=== PATIENT | male | born 1945 | race Caucasian/White ===

== ENCOUNTER 2019-03-22 05:40 | Inpatient (IN) | payer BC, MEDICARE ==
[2019-03-11 12:26] LABS: BASOPHILS # (AUTO) 0.1 X10'3 (0-0.2); BASOPHILS % (AUTO) 1.4 % (0-1); EOSINOPHILS # (AUTO) 0.2 X10'3 (0-0.9); EOSINOPHILS % (AUTO) 3.2 % (0-6); LYMPHOCYTES # (AUTO) 1.2 X10'3 (1.1-4.8); MEAN CORPUSCULAR HEMOGLOBIN 30.5 PG (27.0-31.0); MEAN CORPUSCULAR VOLUME 89.6 FL (78-98); MEAN PLATELET VOLUME 9.5 FL (7.4-10.4); MONOCYTES # (AUTO) 0.5 X10'3 (0-0.9); MONOCYTES % (AUTO) 8.8 % (2-12); NEUTROPHILS # (AUTO) 3.4 X10'3 (1.8-7.7); NEUTROPHILS % (AUTO) 63.6 % (42-75); PRE OP HEMATOCRIT 43.4 % (42.0-52.0); PRE OP HEMOGLOBIN 14.8 g/dL (14.0-17.9); PRE OP PLATELET COUNT 167 X10'3 (140-440); RED BLOOD COUNT 4.85 X10'6 (4.70-6.10); RED CELL DISTRIBUTION WIDTH 13.3 % (11.5-14.5)
[2019-03-11 12:27] LABS: CLARITY,URINE CLEAR (Clear); COLOR,URINE YELLOW (Yellow); GLUCOSE, URINE NEGATIVE (Neg); KETONES,URINE TRACE mg/dl (Neg); LEUKOCYTE ESTERASE ,URINE NEGATIVE (Neg); NITRITES, URINE NEGATIVE (Neg); OCCULT BLOOD,URINE NEGATIVE (Neg); PH,URINE 5.5 (4.8-8.0); PROTEIN,URINE TRACE mg/dl (Neg); UROBILINOGEN,URINE 0.2 E.U/dL (0.2-1.0)
[2019-03-11 12:33] LABS: UA COLLECTION TYPE CLN CATCH MIDSTREAM
[2019-03-11 12:38] LABS: BACTERIA,URINE FEW /HPF (Neg); RBC,URINE NONE SEEN /HPF (0-2); SQUAMOUS EPITHELIAL CELL,UR NONE SEEN /LPF (FEW); WBC,URINE 0-4 /HPF (0-4)
[2019-03-11 12:38] LABS: PRE OP INR 1.1 INR; PRE OP PROTIME 10.7 SECONDS (9.0-12.0)
[2019-03-11 12:43] LABS: ALBUMIN/GLOBULIN RATIO 1.3 (1.1-1.5); ALKALINE PHOSPHATASE 69 IU/L (46-116); BLOOD UREA NITROGEN 30 MG/DL (7-18); BUN/CREATININE RATIO 31.3 (5.4-32.0); CALCIUM 8.9 MG/DL (8.5-10.1); CHLORIDE 106 MMOL/L (99-107); CREATININE 0.96 MG/DL (0.60-1.10); PRE OP ALT 33 U/L (30-65); PRE OP ANION GAP 7 (8-16); PRE OP AST 16 U/L (10-37); PRE OP BILIRUB, TOTAL 0.7 MG/DL (0.0-1.0); PRE OP GLUCOSE 100 MG/DL (70-104); PRE OP POTASSIUM 4.1 MMOL/L (3.4-5.1); PRE OP SODIUM 141 MMOL/L (135-145); TOTAL CARBON DIOXIDE 28.3 MMOL/L (24-32); TOTAL PROTEIN 7.2 G/DL (6.4-8.2); eGFR 77 ML/MIN
[2019-03-11 12:46] LABS: HEMOGLOBIN A1C 6.1 % (4.5-6.2)
[2019-03-22] VITALS (16 sets, daily range): BP systolic 118–141; BP diastolic 56–88
[~2019-03-22] VITALS: Ht 180.3 cm; Wt 92.6 kg
[~2019-03-22 05:40] MED LIST: AMLO10TA13 PO; ATOR10TA70 PO; CITA20TA28 PO; MELO15TA13 PO; METF500T20 PO; acetaminophen 325mg tablet PO ONE; cefazolin/dext.iso 2gm/100 ML IV ONE; celeCOXIB 100mg capsule PO ONE; famotidine 20mg tablet PO ONE; gabapentin 300mg capsule PO ONE; oxyCODONE SR 10mg (sust. release) tab PO ONE; ringers solution, lacted 1,000 ML IV SCH; tranexamic acid inj. 1,500 MG in normal saline 100ml IV soln 100 ML IV ONE
[2019-03-22] MEDS ORDERED: LIDOcaine 1% (10mg/ml) 2ml vial ONE (06:09)
[2019-03-22] MEDS ORDERED: ROPIVAcaine 0.5% (5mg/ml) 30ml vial ONE (06:36)
[2019-03-22] MEDS ORDERED: tetracaine 1% (10mg/ml) pres. free inj. ONE (07:12)
[2019-03-22] MEDS ORDERED: fentaNYL/PF 50MCG/1 ML 2ML syringe ONE (07:14)
[2019-03-22] MEDS ORDERED: MIDAZolam 1mg/ml 10ml vial ONE (07:14)
[2019-03-22] MEDS ORDERED: morphine /PF 1mg/ml 10ml inj. ONE (07:14)
[2019-03-22] MEDS ORDERED: propofol inj 20 ML IV ONE ×2 (07:32)
[2019-03-22] MEDS ORDERED: LIDOcaine 2% (20mg/ml) 5ml vial ONE (07:32)
[2019-03-22] MEDS ORDERED: ceFAZolin 1000mg inj ONE (07:42)
[2019-03-22] MEDS ORDERED: vancomycin 1,000mg inj ONE ×2 (07:59)
[2019-03-22] MEDS ORDERED: ringers solution, lacted 1,000 ML IV SCH (08:09)
[2019-03-22] MEDS ORDERED: ondansetron/PF 4mg/2ml inj IV PRN ×3 (08:10→09:05)
[2019-03-22] MEDS ORDERED: diphenhydrAMINE 50 mg/ml inj IV PRN (08:10)
[2019-03-22] MEDS ORDERED: fentaNYL/PF 50MCG/1 ML 2ML syringe IV PRN ×2 (08:10)
[2019-03-22] MEDS ORDERED: hydrALAZINE 20mg/ml inj. IV PRN (08:10)
[2019-03-22] MEDS ORDERED: morphine 4 MG/ML inj SYRINge IV PRN ×2 (08:10)
[2019-03-22] MEDS ORDERED: labetalol 20mg/4ml (5mg/ml) syringe IV PRN (08:10)
[2019-03-22] MEDS ORDERED: magnesium hydroxide 30ml (MOM) UD suspension PO PRN (09:05)
[2019-03-22] MEDS ORDERED: dextrose 50%-water 50ml dispensing syringe IV PRN ×2 (09:05)
[2019-03-22] MEDS ORDERED: dextrose ORAL solution 15 GM/59 ML bottle PO PRN ×2 (09:05)
[2019-03-22] MEDS ORDERED: acetaminophen 325mg tablet PO PRN (09:05)
[2019-03-22] MEDS ORDERED: glucagon, human recombinant 1mg kit SUBCUT PRN ×2 (09:05→09:25)
[2019-03-22] MEDS ORDERED: MESSAGE TO PHARMACY PO ONE (09:05)
[2019-03-22] MEDS ORDERED: HYDROmorphone 1 mg/ml syringe IV PRN (09:05)
[2019-03-22] MEDS ORDERED: insulin Lispro (HumaLOG) vial - multi-dose SQ SCH (09:05)
[2019-03-22] MEDS ORDERED: bisacodyl 10mg suppository rectal RC PRN (09:05)
[2019-03-22] MEDS ORDERED: diphenhydrAMINE 25mg capsule PO PRN ×2 (09:05)
--- NOTE | 2019-03-22 09:20 | NUR ---
Received from OR via BED , accompanied by Anesthesiologist DR DE LUNA and report given by Anesthesiolgist. PATIENT WAKING UP, DENIES PAIN, V/S WNL, NEUROVASCULAR CHECKS INTACT, 18G PIV RUE , DRESSING TO RIGHT HIP CDI W/ COLD POWDER PACK AND PILLOW ABDUCTING W/ SCD ON. F/C DRAINING CLEAR YELLOW URINE. SENSATION T-11.
--- NOTE | 2019-03-22 10:10 | NUR ---
PATIENT A&OX4, DENIES PAIN, V/S WNL, NEUROVASCULAR CHECKS INTACT, 18G PIV RUE , DRESSING TO RIGHT HIP CDI W/ COLD POWDER PACK AND PILLOW ABDUCTING W/ SCD ON. F/C DRAINING CLEAR YELLOW URINE. SENSATIONS AT T11, PATIENT TRANSPORTED TO 4014B WITH ALL BELONGINGS AND HOOKED UP TO MONITORS IN ROOM AND REPORT GIVEN TO LEAD DATA ENTRY OPERATOR WHO HAS TAKEN OVER PATIENT CARE.
[2019-03-22] MEDS: potassium cl 20mEq in 1/2 NS 1,000 ML IV SCH ×3 (12:36→19:35)
[2019-03-22] MEDS: gabapentin 300mg capsule PO SCH ×2 (12:36→20:49)
[2019-03-22] MEDS: oxyCODONE/APAP 10/325mg tablet PO PRN ×3 (15:54→23:21)
[2019-03-22] MEDS: ceFAZolin 1GM/D5W- ADD-VANTAGE 50 ML IV SCH ×2 (15:55→23:22)
--- NOTE | 2019-03-22 18:02 | NUR ---
Report given to Tatyana HERMAN
--- NOTE | 2019-03-22 18:05 | NUR ---
Received report from Karena HERMAN, assumed care of patient.
[2019-03-22] MEDS: metFORMIN 500mg tablet PO SCH (19:34)
[2019-03-22] MEDS: ascorbic acid 500mg tablet PO SCH (19:34)
[2019-03-22] MEDS ORDERED: vancomycin/NS 1 GM ADD-VANTAGE 250 ML IV SCH (20:00)
[2019-03-22] MEDS: sennosides 8.6mg tablet PO SCH (20:50)
[2019-03-22] MEDS: atorvastatin 10mg tablet PO SCH (20:50)
[2019-03-22] MEDS: insulin glargine (Lantus) pen - multi-dose SQ SCH (20:54)
[2019-03-22] MEDS ORDERED: atorvastatin 10mg tablet PO SCH (21:00)
[2019-03-23 02:00] VITALS: BP 125/72
[2019-03-23] MEDS: oxyCODONE/APAP 10/325mg tablet PO PRN ×3 (05:04→13:25)
[2019-03-23 06:00] VITALS: BP 112/55
--- NOTE | 2019-03-23 06:09 | NUR ---
Report given to Karena HERMAN.
[2019-03-23 06:29] LABS: BASOPHILS % (AUTO) 0.6 % (0-1); EOSINOPHILS # (AUTO) 0.2 X10'3 (0-0.9); EOSINOPHILS % (AUTO) 2.8 % (0-6); HEMATOCRIT 35.5 % (42.0-52.0); LYMPHOCYTES # (AUTO) 0.7 X10'3 (1.1-4.8); LYMPHOCYTES % (AUTO) 9.2 % (21-51); MEAN CORPUSCULAR HEMOGLOBIN 30.8 PG (27.0-31.0); MEAN CORPUSCULAR HGB CONC 33.8 g/dL (33.0-36.5); MEAN CORPUSCULAR VOLUME 91.1 FL (78-98); MEAN PLATELET VOLUME 8.9 FL (7.4-10.4); MONOCYTES # (AUTO) 0.5 X10'3 (0-0.9); MONOCYTES % (AUTO) 7.2 % (2-12); NEUTROPHILS # (AUTO) 6.1 X10'3 (1.8-7.7); NEUTROPHILS % (AUTO) 80.2 % (42-75); PLATELET COUNT 144 X10'3 (140-440); RED CELL DISTRIBUTION WIDTH 13.5 % (11.5-14.5); WHITE BLOOD COUNT 7.6 X10'3 (4.5-11.0)
[2019-03-23 06:34] LABS: ANION GAP 6 (8-16); CHLORIDE 104 MMOL/L (99-107); POTASSIUM 4.3 MMOL/L (3.5-5.1); SODIUM 138 MMOL/L (135-145); TOTAL CARBON DIOXIDE 28.3 MMOL/L (24-32)
--- NOTE | 2019-03-23 06:35 | NUR ---
Received report from Tatyana HERMAN
[2019-03-23] MEDS: potassium cl 20mEq in 1/2 NS 1,000 ML IV SCH ×2 (07:03→17:01)
[2019-03-23] MEDS ORDERED: warfarin 5mg tablet PO ONE ×2 (07:20→10:00)
[2019-03-23] MEDS: amLODIPine 5mg tablet PO SCH (07:48)
[2019-03-23] MEDS: multivitamins, therapeutics tablet PO SCH (07:48)
[2019-03-23] MEDS: citalopram 20mg tablet PO SCH (07:48)
[2019-03-23] MEDS: metFORMIN 500mg tablet PO SCH ×2 (07:48→20:22)
[2019-03-23] MEDS: gabapentin 300mg capsule PO SCH ×3 (07:49→20:22)
[2019-03-23] MEDS: ascorbic acid 500mg tablet PO SCH ×2 (07:49→20:22)
[2019-03-23 11:45] VITALS: BP 148/68
--- NOTE | 2019-03-23 13:26 | NUR ---
scanner on computer not working, checked meds prior to admin
--- NOTE | 2019-03-23 14:23 | NUR ---
Joint/DM consults: Pt PO 100% carb controlled diet meeting healing needs post-op. Hx DM A1C <7. LBM 03/21. No nutrition concerns at this time. Addendum: 03/23/19 at [address] Amended: Links added.
[2019-03-23 18:00] VITALS: BP 149/62
--- NOTE | 2019-03-23 18:10 | NUR ---
Received report from Karena HERMAN, assumed care of patient.
[2019-03-23] MEDS: atorvastatin 10mg tablet PO SCH (20:22)
[2019-03-23] MEDS: celeCOXIB 100mg capsule PO SCH (20:22)
[2019-03-23] MEDS: sennosides 8.6mg tablet PO SCH (20:26)
[2019-03-23] MEDS: insulin glargine (Lantus) pen - multi-dose SQ SCH (21:00)
[2019-03-23 22:00] VITALS: BP 145/68
[2019-03-24] MEDS: potassium cl 20mEq in 1/2 NS 1,000 ML IV SCH (01:01)
[2019-03-24] MEDS: oxyCODONE/APAP 10/325mg tablet PO PRN (05:38)
[2019-03-24 06:00] VITALS: BP 136/67
--- NOTE | 2019-03-24 06:20 | NUR ---
Patient in room [facility] 4014. I have received report from Tatyana Tan RN and had the opportunity to ask questions and assume patient care.
--- NOTE | 2019-03-24 06:28 | NUR ---
Report given to Analy HERMAN.
[2019-03-24 06:31] LABS: BASOPHILS # (AUTO) 0.1 X10'3 (0-0.2); BASOPHILS % (AUTO) 0.7 % (0-1); EOSINOPHILS # (AUTO) 0.2 X10'3 (0-0.9); EOSINOPHILS % (AUTO) 2.8 % (0-6); HEMATOCRIT 37.3 % (42.0-52.0); HEMOGLOBIN 12.7 g/dl (14.0-17.9); LYMPHOCYTES # (AUTO) 0.9 X10'3 (1.1-4.8); LYMPHOCYTES % (AUTO) 11.3 % (21-51); MEAN CORPUSCULAR HEMOGLOBIN 31.1 PG (27.0-31.0); MEAN CORPUSCULAR VOLUME 91.3 FL (78-98); MEAN PLATELET VOLUME 9.1 FL (7.4-10.4); MONOCYTES # (AUTO) 0.7 X10'3 (0-0.9); MONOCYTES % (AUTO) 8.9 % (2-12); NEUTROPHILS % (AUTO) 76.3 % (42-75); PLATELET COUNT 155 X10'3 (140-440); RED BLOOD COUNT 4.08 X10'6 (4.70-6.10); RED CELL DISTRIBUTION WIDTH 13.9 % (11.5-14.5); WHITE BLOOD COUNT 7.8 X10'3 (4.5-11.0)
[2019-03-24] MEDS ORDERED: warfarin 7.5mg tablet PO ONE ×2 (06:55→10:00)
[2019-03-24] MEDS: gabapentin 300mg capsule PO SCH (08:00)
[2019-03-24] MEDS: citalopram 20mg tablet PO SCH (08:23)
[2019-03-24] MEDS: metFORMIN 500mg tablet PO SCH (08:24)
[2019-03-24] MEDS: celeCOXIB 100mg capsule PO SCH (08:24)
[2019-03-24] MEDS: amLODIPine 5mg tablet PO SCH (08:25)
[2019-03-24] MEDS: ascorbic acid 500mg tablet PO SCH (08:26)
[2019-03-24] MEDS: multivitamins, therapeutics tablet PO SCH (08:26)
[2019-03-24] MEDS ORDERED: ASPI-1264 PO ×2 (09:01→09:42)
[2019-03-24] MEDS ORDERED: acetaminophen 325mg tablet PO PRN (09:05)
[2019-03-24 10:00] VITALS: BP 134/60
--- NOTE | 2019-03-24 12:00 | NUR ---
Reviewed discharge instructions with pt and spouse. Pt verbalized understanding. Pt is alert and oriented, no c/o pain or discomfort at this time. Dressing changed at discharge time. All of pt's belongings were returned to pt. Pt was wheeled downstairs to be driven home by his spouse.
== END 2019-03-24 12:15 | disposition home health service (06) | DRG 470 ==
LOC: PAS IN 05:40 → EDSTATUS 07:30 → ORTHO 4S 10:15
PROVIDERS: ADMIT Specialist; ATTEND Specialist
PROC: 0SR902Z Replacement of Right Hip Joint with Metal on Polyethylene Synthetic Substitute, Open Approach (ICD-10-PCS; principal; 2019-03-24)
DX: M16.11 Unilateral primary osteoarthritis, right hip (principal); D62 Acute posthemorrhagic anemia; E11.9 Type 2 diabetes mellitus without complications; I10 Essential (primary) hypertension; J45.909 Unspecified asthma, uncomplicated; E78.5 Hyperlipidemia, unspecified; E66.9 Obesity, unspecified; F17.200 Nicotine dependence, unspecified, uncomplicated; M25.751 Osteophyte, right hip; F32.9 Major depressive disorder, single episode, unspecified; Z88.8 Allergy status to other drugs, medicaments and biological substances; Z79.899 Other long term (current) drug therapy; Z98.52 Vasectomy status; Z68.28 Body mass index [BMI] 28.0-28.9, adult
CPT/HCPCS: Z7506; Z7508; 36415; 73502; 80051; 80053; 81001; 82948; 83036; 85025; 85610; 85730; 86885; 86900; 86901; 87081; 97110; 97116; 97162; 97530; A6253; A6449; A6454; A7000; C1758; C1776; G0378; J0690; J1170; J1815; J2001; J2250; J2270; J2704; J2795; J3010; J3370; J3480; J7120

== ENCOUNTER 2023-05-05 23:58 | Emergency (ER) | payer BC, MEDICARE ==
[~2023-05-05] VITALS: Ht 177.8 cm; Wt 86.4 kg
[~2023-05-05 23:58] MED LIST changes: +ASPI-1264 PO; +METF-900 PO; -METF500T20 PO; -acetaminophen 325mg tablet PO ONE; -cefazolin/dext.iso 2gm/100 ML IV ONE; -celeCOXIB 100mg capsule PO ONE; -famotidine 20mg tablet PO ONE; -gabapentin 300mg capsule PO ONE; -oxyCODONE SR 10mg (sust. release) tab PO ONE; -ringers solution, lacted 1,000 ML IV SCH; -tranexamic acid inj. 1,500 MG in normal saline 100ml IV soln 100 ML IV ONE
[2023-05-05 23:59] VITALS: BP 172/94; PULSE 72; RESP 18; TEMP 98.2; O2SAT 97
[2023-05-06 00:44] LABS: EOSINOPHILS # (AUTO) 0.4 X10'3 (0-0.9)
[2023-05-06 00:45] LABS: BASOPHILS # (AUTO) 0.1 X10'3 (0-0.2); BASOPHILS % (AUTO) 2.1 % (0-1); EOSINOPHILS % (AUTO) 6.7 % (0-6); HEMATOCRIT 43.4 % (42.0-52.0); HEMOGLOBIN 14.7 g/dl (14.0-17.9); LYMPHOCYTES # (AUTO) 0.9 X10'3 (1.1-4.8); LYMPHOCYTES % (AUTO) 15.8 % (21-51); MEAN CORPUSCULAR HEMOGLOBIN 31.1 PG (27.0-31.0); MEAN CORPUSCULAR HGB CONC 33.9 g/dL (33.0-36.5); MEAN CORPUSCULAR VOLUME 91.7 FL (78-98); MEAN PLATELET VOLUME 9.1 FL (7.4-10.4); MONOCYTES # (AUTO) 0.5 X10'3 (0-0.9); MONOCYTES % (AUTO) 8.4 % (2-12); NEUTROPHILS # (AUTO) 3.6 X10'3 (1.8-7.7); PLATELET COUNT 170 X10'3 (140-440); RED BLOOD COUNT 4.73 X10'6 (4.70-6.10); WHITE BLOOD COUNT 5.4 X10'3 (4.5-11.0)
[2023-05-06 00:58] LABS: ALANINE AMINOTRANSFERASE 42 U/L (12-78); ALBUMIN 4.1 G/DL (3.4-5.0); ALBUMIN/GLOBULIN RATIO 1.3 (1.1-1.5); ALKALINE PHOSPHATASE 81 IU/L (46-116); ANION GAP 6 (8-16); ASPARTATE AMINO TRANSFERASE 20 U/L (10-37); BILIRUBIN,TOTAL 0.4 MG/DL (0.1-1.0); BLOOD UREA NITROGEN 35 MG/DL (7-18); BUN/CREATININE RATIO 26.9 (10.0-20.0); CALCIUM 9.7 MG/DL (8.5-10.1); CHLORIDE 102 MMOL/L (99-107); GLUCOSE 187 MG/DL (70-104); SODIUM 136 MMOL/L (135-145); TOTAL CARBON DIOXIDE 28.5 MMOL/L (24-32); TOTAL PROTEIN 7.3 G/DL (6.4-8.2); eCRCL 49 ML/MIN; eGFR 54 ML/MIN
[2023-05-06 04:01] LABS: PLATELET ESTIMATE NORMAL; TOTAL CELLS COUNTED 100
[2023-05-06 04:15] LABS: BILIRUBIN,URINE NEGATIVE (Neg); CLARITY,URINE CLEAR (Clear); COLOR,URINE YELLOW (Yellow); GLUCOSE, URINE NEGATIVE (Neg); KETONES,URINE NEGATIVE (Neg); LEUKOCYTE ESTERASE ,URINE NEGATIVE (Neg); NITRITES, URINE NEGATIVE (Neg); OCCULT BLOOD,URINE MODERATE (Neg); PROTEIN,URINE NEGATIVE (Neg); UROBILINOGEN,URINE 0.2 E.U/dL (0.2-1.0)
[2023-05-06 04:24] LABS: UA COLLECTION TYPE CLN CATCH MIDSTREAM; WBC,URINE 0-4 /HPF (0-4)
[2023-05-06 04:25] LABS: BACTERIA,URINE NONE SEEN /HPF (Neg); MUCUS STRANDS NONE SEEN /LPF (Neg); SQUAMOUS EPITHELIAL CELL,UR FEW /LPF (FEW)
[2023-05-06] MEDS ORDERED: ONDA8TAB13 PO (04:57)
[2023-05-06] MEDS ORDERED: HYDR-3965 PO (04:57)
== END 2023-05-06 05:23 | disposition home or self-care (01) ==
LOC: ER 23:58
DX: R10.9 Unspecified abdominal pain (principal); R11.2 Nausea with vomiting, unspecified
CPT/HCPCS: 36415; 74176; 80053; 81001; 85007; 85025; 99283; 99284

== ENCOUNTER 2024-12-07 09:41 | Outpatient (CLI) | payer MEDICARE, BC ==
[2024-12-07] VITALS (21 sets, daily range): BP systolic 72–153; BP diastolic 46–80; PULSE 58–118
[~2024-12-07 09:41] MED LIST changes: -ASPI-1264 PO; -ATOR10TA70 PO; +ATOR20TA66 PO; +CHLO25TA10 PO; +CITA-178 PO; -CITA20TA28 PO; +CLOP75TA34 PO; +LOSA50TA64 PO; +METF-1203 PO; +METF-438 PO; -METF-900 PO; +POTA-208 PO
--- NOTE | 2024-12-08 19:04 | CARDIOLOGY REPORT ---
DATE OF SERVICE: 12/07/2024 DICTATING PHYSICIAN: TAINA Novoa MD CARDIAC TILT TABLE REPORT PRIMARY PHYSICIAN: ____. INTERPRETING MANAGER DATABASE: TAINA Novoa MD INDICATION: The patient is a 79-year-old male with history of hypotension, blood pressure is dropping to 72/53 without symptoms. ____ ? postural orthostasis. DESCRIPTION OF PROCEDURE: In the supine resting condition, the patient's heart rate was 58 per minute with a blood pressure 153/76. After 30 minutes of 70-degree tilt, the patient's heart rate was 81 per minute with a blood pressure of 101/60. After 40 minutes of 70-degree tilt, the patient's heart rate was 118 per minute with a blood pressure of 114/70. In supine recovery condition, the patient's heart rate was 66 per minute with a blood pressure of 135/68. IMPRESSION: A 79-year-old male with postural orthostasis with tachycardia syndrome. RECOMMENDATIONS: Clinical correlation. TAINA Novoa MD TID: [id number] RECEIPT: [id number] TAYE/ARYA/PARAMJIT
== END 2024-12-07 23:59 | disposition home or self-care (01) ==
LOC: CARD DIAG 09:41
PROVIDERS: ATTEND Nurse Practitioner Family
DX: I95.1 Orthostatic hypotension (principal); R51.0 Headache with orthostatic component, not elsewhere classified; R42 Dizziness and giddiness
CPT/HCPCS: 93660